=== PATIENT | female | born 1950 | race American Indian/Alaskan Native ===

== ENCOUNTER 2017-07-31 11:08 | Outpatient (CLI) | payer MEDICARE ==
--- NOTE | 2017-07-31 12:03 | XRay Report ---
LEFT HIP RADIOGRAPHS INDICATION: Left hip pain. COMPARISON: None similar. FINDINGS: An AP pelvic radiograph with frog-leg projection of the left hip demonstrate normal femoral head contours bilaterally. Mild acetabular spurring. Moderate lower lumbar degenerative changes. Possible osteopenia. Multiple pelvic phleboliths. Imaged bilateral SI and hip joints appear intact. Nonobstructive bowel gas pattern. CONCLUSION: No acute left hip radiographic abnormality with few degenerative changes noted, as above. Thank you for the opportunity to participate in this patient's care.
--- NOTE | 2017-07-31 14:08 | XRay Report ---
Standing lumbar spine series: Left sciatica. As a grade 1 anterior L4 subluxation. Mild anterior traction spurs are identified virtually all levels. The L5-S1 interspace is markedly narrowed and there is mild eburnation of the articular surfaces. The L4-5 and L5-S1 apophyseal joints are narrowed bilaterally with mild sclerosis predominantly at L5-S1. The remaining vertebral bodies and interspaces are not otherwise remarkable. Impression: 1. Degenerative bone and disc changes at L5-S1. 2. Grade one L4 subluxation.
== END 2017-07-31 11:09 | disposition home or self-care (01) ==
LOC: SPVIMAG 11:08
PROVIDERS: ATTEND Internal Medicine
DX: S33.39XA Dislocation of other parts of lumbar spine and pelvis, initial encounter (principal); M47.897 Other spondylosis, lumbosacral region; M16.12 Unilateral primary osteoarthritis, left hip; I87.8 Other specified disorders of veins; X58.XXXA Exposure to other specified factors, initial encounter; Y93.89 Activity, other specified; Y92.89 Other specified places as the place of occurrence of the external cause; Y99.8 Other external cause status
CPT/HCPCS: 72110

== ENCOUNTER 2020-07-04 14:54 | Outpatient (CLI) | payer MEDICARE ==
--- NOTE | 2020-07-04 15:37 | Ultrasound Report ---
ULTRASOUND BREAST RIGHT LIMITED, 07/04/2020 CLINICAL INFORMATION / INDICATION: RIGHT BREAST SOLITARY CYST N60.01. Patient presents for six-month follow-up of a probably benign complicated cyst versus hypoechoic nodule in the right breast. TECHNIQUE: Targeted ultrasound evaluation was performed of the area of interest. COMPARISON: Right breast ultrasound 12/07/2019 FINDINGS: There is a stable complicated cyst versus oval circumscribed hypoechoic mass in the right breast 10:0 0 position located 7 cm from the nipple, currently measuring up to 8 x 7 x 6 mm, previously 8 x 7 x 6 mm. There is an incidental 1.6 cm benign cyst in the 10:00 position located 9 cm from the nipple. IMPRESSION: 1. An oval circumscribed hypoechoic mass versus complicated cyst in the right breast is unchanged fro m prior examination and remains probably benign. Recommend right breast ultrasound in 6 months to ens ure ongoing stability, at which time patient will be due for bilateral mammogram. Follow up recommendation: Short term follow up in 6 months. BI-RADS Category 3: Probably Benign. Followup in 6 months. A normal or "negative" report should not preclude biopsy or follow-up of a clinically suspicious find ing. Signer Name: Tawny Lomas MD Signed: 07/04/2020 3:33 PM Workstation Name: [id number]
== END 2020-07-04 14:55 | disposition home or self-care (01) ==
LOC: SPVWC 14:54
PROVIDERS: ATTEND Surgery
DX: N63.11 Unspecified lump in the right breast, upper outer quadrant (principal); N60.01 Solitary cyst of right breast

== ENCOUNTER 2020-11-29 09:12 | Outpatient (CLI) | payer MEDICARE ==
--- NOTE | 2020-11-29 11:01 | Ultrasound Report ---
BILATERAL DIGITAL DIAGNOSTIC MAMMOGRAM WITH CAD WITH TOMOSYNTHESIS, 11/29/2020 RIGHT LIMITED BREAST ULTRASOUND CLINICAL INFORMATION / INDICATION: Patient presents for six-month follow-up of a probably benign nodu le versus complicated cyst in the right breast. Patient is also currently due for bilateral mammogram . TECHNIQUE: Digital bilateral mammographic imaging was performed. Limited ultrasound was performed. Th is examination was interpreted with the benefit of Computer-Aided Detection (CAD) analysis. COMPARISON: Prior mammograms 11/24/2019 and 08/02/2018, and right breast ultrasound 07/04/2020 and 020 FINDINGS: Breast Density: The breasts are heterogeneously dense, which may obscure small masses. MAMMOGRAPHIC FINDINGS: No dominant mass, suspicious calcifications, or architectural distortion in ei ther breast. There is fluctuating benign-appearing nodularity seen throughout both breasts most conner tible with a benign process, likely cysts. There is a stable biopsy clip seen in the right breast. ULTRASOUND FINDINGS: Targeted ultrasound evaluation was performed of the area of interest. There is a stable oval circumscribed hypoechoic mass versus complicated cyst in the right breast 10:00 positi on located 7 cm from the nipple, currently measuring up to 8 x 7 x 7 mm, previously 8 x 7 x 6 mm. An adjacent benign cyst is seen in the 10:00 position located 9 cm from the nipple measuring up to 9 mm. IMPRESSION: 1. An oval circumscribed hypoechoic mass versus complicated cyst in the 10:00 right breast is unchang ed compared with prior examination and remains probably benign. Recommend right breast ultrasound in 6 months to ensure ongoing stability. Follow up recommendation: Short term follow up in 6 months. BI-RADS Category 3: Probably Benign. Followup in 6 months. A "normal" or negative report should not discourage follow up or biopsy of a clinically significant f inding. A written summary of these findings will be mailed to the patient. The patient will be entered into a mammography reporting system which will generate a reminder letter for the patient's next appointmen t at the appropriate interval. According to the [employer], yearly mammograms are recommended starting at age 40 and continuing as long as a woman is in good health. Breast MRI is recommended for women with an wyatt roximately 20-25% or greater lifetime risk of breast cancer, including women with a strong family his tory of breast or ovarian cancer and women who have been treated for Hodgkin's disease. Signer Name: Tawny Lomas MD Signed: 11/29/2020 10:57 AM Workstation Name: [id number]
== END 2020-11-29 09:13 | disposition home or self-care (01) ==
LOC: SPVWC 09:12
PROVIDERS: ATTEND Surgery
DX: N60.01 Solitary cyst of right breast (principal); R92.8 Other abnormal and inconclusive findings on diagnostic imaging of breast
CPT/HCPCS: 76642; 77066; G0279